=== PATIENT | female | born 1990 | race Two or more races ===

== ENCOUNTER 2017-12-26 15:27 | Emergency (ER) | payer MEDICAID ==
[~2017-12-26 15:27] MED LIST: ACET500T68 PO; AMOX500T10 PO; HYDR-4309 PO; HYDR473S9 PO; IBUP-56 PO; LEVO50TA86 PO; SERT-184 PO
--- NOTE | 2017-12-26 15:33 | ER Report ---
History and Physical Time Seen By MD: 15:33 Hx. of Stated Complaint: LEFT EAR PAIN FOR TWO DAYS. HPI/ROS CHIEF COMPLAINT: Left ear pain HISTORY OF PRESENT ILLNESS: This is a 27-year-old female presents to the emergency department for left ear pain. Patient states over the last couple days she's had left ear pain, increasing in intensity. No fevers or chills. No nausea or vomiting. No chest pain or shortness of breath. Has been applying a warm compress to the left ear with minimal relief. No other complaints. REVIEW OF SYSTEMS: Respiratory: No cough, no dyspnea. Cardiovascular: No chest pain, no palpitations. Gastrointestinal: No vomiting, no abdominal pain. Musculoskeletal: No back pain. ENT: As above. Allergies: Coded Allergies: No Known Drug Allergies (Unverified , 12/26/14) Home Meds Active Scripts Amoxicillin/Pot Clav 875-125 Mg Tab (AUGMENTIN 875-125 TABLET) 1 Each Tablet, 1 TAB PO Q12H for 7 Days, #14 TAB 0 Refills Prov:KATELYNN GARCIA WATCHSTANDER-BC 12/26/17 Discontinued Reported Medications Acetaminophen (TYLENOL EXTRA STRENGTH) 500 Mg Tablet, 1000 MG PO 12/26/14 Sertraline Hcl (SERTRALINE HCL) 50 Mg Tablet, 1 TAB PO QDAY, TAB 10/08/14 Levothyroxine Sodium (LEVOTHYROXINE SODIUM) 50 Mcg Tablet, 100 MCG PO QDAY 10/08/14 Discontinued Scripts Hydrocodone/Acetaminophen 10/300 MG/15 ML (Lortab 10 mg-300 mg/15 ml Elxr) 473 Ml Solution, 10-15 ML PO Q6H, #180 ML Prov:YUKO KENNEDY [employer] 12/26/14 Past Medical/Surgical History The patient has a past medical and surgical history of migraines, hypothyroidism, ectopic . Reviewed Nurses Notes: Yes Hx Smoking: No Smoking Status: Never Smoker Hx Substance Use Disorder: No Constitutional Vital Sign - Last 24 Hours 12/26/17 12/26/17 15:30 16:08 Temp 99.0 Pulse 122 108 Resp 16 16 B/P (MAP) 125/82 110/86 (94) Pulse Ox 94 95 O2 Delivery Room Air Room Air Physical Exam General Appearance: The patient is alert, has no immediate need for airway protection and no current signs of toxicity. Eyes: Pupils equal and round no injection. ENT: Right TM landmarks noted, pearly elam, no injection. Left TM landmarks noted, injected with surrounding erythema. Respiratory: Chest is non tender, lungs are clear to auscultation. Cardiac: regular rate and rhythm, no murmurs, clicks or rubs. Gastrointestinal: Abdomen is soft and non tender, no masses, bowel sounds normal. Musculoskeletal: Neck: Neck is supple and non tender. Extremities have full range of motion and are non tender. Skin: No rashes or lesions. DIFFERENTIAL DIAGNOSIS: After history and physical exam differential diagnosis was considered for otitis media, otitis externa, viral syndrome. Medical Decision Making ED Course/Re-evaluation ED Course The patient was admitted to a room. A history and physical were obtained. Differential diagnoses were considered. After examination the patient the left TM is consistent with otitis media. A prescription for Augmentin was sent to the patients pharmacy. The patient was instructed to complete the antibiotics, foll ow up with her PCP as needed. The patient had no other questions or concerns at the time of discharge. Decision to Disposition Date: Dec 26, 2017 Decision to Disposition Time: 15:41 Depart Departure Latest Vital Signs Vital Signs Date Time Temp Pulse Resp B/P (MAP) Pulse Ox O2 Delivery O2 Flow Rate FiO2 12/26/17 16:08 108 16 110/86 (94) 95 Room Air 12/26/17 15:30 99.0 Impression: Primary Impression: Left otitis media Condition: Improved Disposition: HOME OR SELF-CARE New Scripts Amoxicillin/Pot Clav 875-125 Mg Tab (AUGMENTIN 875-125 TABLET) 1 Each Tablet 1 TAB PO Q12H for 7 Days, #14 TAB 0 Refills Prov: KATELYNN GARCIA-MARIE 12/26/17 Patient Instructions: Otitis Media (ED) Additional Instructions: Take the antibiotics as prescribed. Take ibuprofen or Tylenol as needed for pain. Drink plenty of water. Get plenty of rest. Follow up with your primary care provider in one week for reevaluation. Return to the ED for any other concerns or worsening symptoms. Problem Qualifiers Primary Impression: Left otitis media Otitis media type: other nonsuppurative Chronicity: acute Recurrence: not specified as recurrent Qualified Codes: H65.192 - Other acute nonsuppurative otitis media, left ear KATELYNN GARCIA WATCHSTANDER-BC Dec 26, 2017 15:33
[2017-12-26] MEDS ORDERED: AMOX-559 PO (15:47)
[2017-12-26 16:08] VITALS: BP 110/86
== END 2017-12-26 16:09 | disposition home or self-care (01) ==
LOC: ER 15:38
DX: H65.192 Other acute nonsuppurative otitis media, left ear (principal)
CPT/HCPCS: 99282

== ENCOUNTER 2018-05-09 13:11 | Emergency (ER) | payer MEDICAID ==
[~2018-05-09 13:11] MED LIST changes: +AMOX-559 PO; -HYDR-4309 PO; +HYDR-653 PO
--- NOTE | 2018-05-09 13:26 | ER Report ---
History and Physical Time Seen By MD: 13:25 Hx. of Stated Complaint: PATIENT REPORTS FEVER, COUGH, AND CHILLS FOR 2 DAYS HPI/ROS CHIEF COMPLAINT: Cough general malaise HISTORY OF PRESENT ILLNESS: Otherwise healthy 19-year-old female comes in 2-3 days of cough nonproductive general malaise that she has 3 people at work and to be put on that all tested positive for influenza a she has no significant past medical history. Patient denies chest pain shortness of breath she does feel nauseated without actual emesis no abdominal pain or discomfort or additional complaints noted. Patient describes a subjective fever REVIEW OF SYSTEMS: Respiratory: has cough, no dyspnea. Cardiovascular: No chest pain, no palpitations. Gastrointestinal: No vomiting, no abdominal pain. Musculoskeletal: No back pain. Remainder of the 14 system rev: Yes Allergies: Coded Allergies: No Known Drug Allergies (Unverified , 12/26/14) Home Meds Discontinued Scripts Amoxicillin/Pot Clav 875-125 Mg Tab (AUGMENTIN 875-125 TABLET) 1 Each Tablet, 1 TAB PO Q12H for 7 Days, #14 TAB 0 Refills Prov:KATELYNN GARCIA [employer] PLATFORM SUPERVISOR-BC 12/26/17 Reviewed Nurses Notes: Yes Old Medical Records Reviewed: Yes Hx Smoking: No Smoking Status: Never Smoker Hx Substance Use Disorder: No Constitutional Vital Sign - Last 24 Hours 05/09/18 13:16 Temp 100.4 Pulse 138 Resp 18 B/P (MAP) 128/87 Pulse Ox 97 O2 Delivery Room Air Physical Exam General Appearance: The patient is alert, has no immediate need for airway protection and no current signs of toxicity. [ ] Eyes: Pupils equal and round no injection. Respiratory: Chest is non tender, lungs are clear to auscultation. Cardiac: regular rate and rhythm [ ] Gastrointestinal: Abdomen is soft and non tender, no masses, bowel sounds normal. Musculoskeletal: Neck: Neck is supple and non tender. Extremities have full range of motion and are non tender. Skin: No rashes or lesions. [ ] DIFFERENTIAL DIAGNOSIS: After history and physical exam differential diagnosis was considered for influenza viral upper respiratory infection bronchitis pneumonia Medical Decision Making Data Points Laboratory Hematology Test 05/09/18 13:17 Influenza Virus Type A (PCR) Positive (NEGATIVE) Influenza Virus Type B (PCR) Negative (NEGATIVE) Chemistry Test 05/09/18 13:17 Influenza Virus Type A (PCR) Positive (NEGATIVE) Influenza Virus Type B (PCR) Negative (NEGATIVE) ED Course/Re-evaluation ED Course 27-year-old female subjective fevers cough positive for influenza A would advise [id number] remedy Decision to Disposition Date: May 09, 2018 Decision to Disposition Time: 14:03 Depart Departure Latest Vital Signs Vital Signs Date Time Temp Pulse Resp B/P (MAP) Pulse Ox O2 Delivery O2 Flow Rate FiO2 05/09/18 13:16 100.4 138 18 128/87 97 Room Air Impression: Primary Impression: Influenza Condition: Improved Disposition: HOME OR SELF-CARE Referrals: RAMON VICTOR MD New Scripts Benzonatate 100 Mg Cap (TESSALON PERLE 100 MG CAP) 100 Mg Capsule 100 MG PO TID, #15 CAP Prov: REA MERCADO MD 05/09/18 Patient Instructions: Influenza (DC) REA MERCADO MD May 09, 2018 13:26
[2018-05-09] MEDS ORDERED: BENZ100C4 PO (14:04)
[2018-05-09 14:07] VITALS: BP 138/82
== END 2018-05-09 14:12 | disposition home or self-care (01) ==
LOC: ER 13:13
DX: J09.X2 Influenza due to identified novel influenza A virus with other respiratory manifestations (principal)
CPT/HCPCS: 87502; 99282

== ENCOUNTER 2018-08-08 17:47 | Emergency (ER) | payer MEDICAID ==
[~2018-08-08 17:47] MED LIST changes: +BENZ100C4 PO
[2018-08-08 17:51] VITALS: BP 127/80
--- NOTE | 2018-08-08 18:02 | ER Report ---
History and Physical Time Seen By MD: 18:02 Hx. of Stated Complaint: "MY FEELS LIKE ITS BURNING" HPI/ROS CHIEF COMPLAINT: Sore throat HISTORY OF PRESENT ILLNESS: This is a 27-year-old female who presents emergency department for a sore throat. Patient states that about 3 days ago she had a slow onset of sore throat, progressively getting worse now feels like it's burning and painful to swallow with intermittent cough. No fevers or chills at home. No nausea or vomiting. She states she is losing her voice, no swelling of the tongue or the throat. States she does not feel as though she is unable to breathe. No chest pain or shortness of breath. REVIEW OF SYSTEMS: ENT: As above. Respiratory: No cough, no dyspnea. Cardiovascular: No chest pain, no palpitations. Gastrointestinal: No vomiting, no abdominal pain. Musculoskeletal: No back pain. Allergies: Coded Allergies: No Known Drug Allergies (Unverified , 08/08/18) Home Meds Discontinued Scripts Benzonatate 100 Mg Cap (TESSALON PERLE 100 MG CAP) 100 Mg Capsule, 100 MG PO TID, #15 CAP Prov:REA MERCADO MD 05/09/18 Past Medical/Surgical History Patient has a past medical and surgical history of headaches, ectopic . Reviewed Nurses Notes: Yes Hx Smoking: No Smoking Status: Never Smoker Hx Substance Use Disorder: No Constitutional Vital Sign - Last 24 Hours 08/08/18 17:51 Temp 98.6 Pulse 95 Resp 20 B/P (MAP) 127/80 Pulse Ox 97 Physical Exam General Appearance: The patient is alert, has no immediate need for airway protection and no current signs of toxicity. Eyes: Pupils equal and round no injection. Throat: Erythema and mild tonsillar hypertrophy bilaterally, no exudates noted, no petechial hemorrhages. Mild erythema to the soft palate. Respiratory: Chest is non tender, lungs are clear to auscultation. Cardiac: regular rate and rhythm. Gastrointestinal: Abdomen is soft and non tender, no masses, bowel sounds normal. Musculoskeletal: Neck: Mild anterior cervical chain lymphadenopathy left greater than right. Extremities have full range of motion and are non tender. Skin: No rashes or lesions. DIFFERENTIAL DIAGNOSIS: After history and physical exam differential diagnosis was considered for bacterial pharyngitis, viral pharyngitis, laryngitis, upper respiratory infection, Nazario's angina. Medical Decision Making Data Points Laboratory Hematology Test 08/08/18 17:54 Group A Streptococcus (PCR) Negative (NEGATIVE) Chemistry Test 08/08/18 17:54 Group A Streptococcus (PCR) Negative (NEGATIVE) ED Course/Re-evaluation ED Course Patient was admitted to room. A history and physical were obtained. Differential diagnoses were considered. Negative rapid strep, I did review the results with the patient. I did tell her this is likely a viral pharyngitis, she was given a prescription for Magic mouthwash instructed to gargle with salt water, continue to monitor closely, also handwashing. Take ibuprofen and Tylenol as needed for aches and pains. Patient expressed understanding was discharged home. Decision to Disposition Date: August 08, 2018 Decision to Disposition Time: 18:37 Depart Departure Latest Vital Signs Vital Signs Date Time Temp Pulse Resp B/P (MAP) Pulse Ox O2 Delivery O2 Flow Rate FiO2 08/08/18 17:51 98.6 95 20 127/80 97 Impression: Primary Impression: Viral pharyngitis Condition: Improved Disposition: HOME OR SELF-CARE New Scripts No Active Prescriptions or Reported Meds Patient Instructions: Pharyngitis (ED) Additional Instructions: You likely have a viral illness, this will likely pass, it will take some time. Use the Magic mouthwash as needed for pain. Take ibuprofen and/or Tylenol for pain and swelling. Drink plenty of water. Get plenty of rest. Be sure to wash her hands, did not share beverages with anyone else. Return to the ER for any other concerns or worsening symptoms. KATELYNN GARCIA NEMATOLOGY TEACHER-BC August 08, 2018 18:02
== END 2018-08-08 18:46 | disposition home or self-care (01) ==
LOC: ER 18:02
DX: J02.8 Acute pharyngitis due to other specified organisms (principal)
CPT/HCPCS: 87653; 99282